=== PATIENT | male | born 1950 | race Caucasian/White ===

== ENCOUNTER 2018-07-20 06:07 | Emergency (ER) | payer MEDICARE ==
[~2018-07-20] VITALS: Ht 177.8 cm; Wt 66.6 kg
[2018-07-20] MEDS ORDERED: OMEP-110 PO (06:16)
--- NOTE | 2018-07-20 06:21 | NUR ---
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
--- NOTE | 2018-07-20 06:52 | NUR ---
X Ray at bedside.
--- NOTE | 2018-07-20 06:56 | NUR ---
Report from Joanne DIAMOND.
[2018-07-20 07:06] VITALS: BP 161/84
--- NOTE | 2018-07-20 07:35 | NUR ---
Provider at bedside.
--- NOTE | 2018-07-20 07:57 | NUR ---
Patient given discharge instructions and they have confirmed that they understand the instructions. Patient ambulatory with steady gait.
== END 2018-07-20 07:59 | disposition home or self-care (01) ==
LOC: ED 07:30
DX: M72.2 Plantar fascial fibromatosis (principal)
CPT/HCPCS: 99283

== ENCOUNTER 2018-10-16 09:42 | Emergency (ER) | payer MEDICARE ==
[~2018-10-16] VITALS: Ht 175.3 cm; Wt 61.1 kg
[~2018-10-16 09:42] MED LIST: OMEP-110 PO
[2018-10-16 09:50] VITALS: BP 136/69
[2018-10-16] MEDS ORDERED: BACITRACIN ZINC OINT 500U/GM, 0.9 GM ONE (10:17)
[2018-10-16] MEDS ORDERED: IBUPROFEN 200 MG TABLET ONE (10:20)
--- NOTE | 2018-10-16 10:23 | NUR ---
PT.'S RIGHT FOREARM AND LEFT KNEE ABRASIONS WERE CLEANESED AND DRESSED BY MARIA INES DALY.
[2018-10-16] MEDS ORDERED: IBUPROFEN 200 MG TABLET PO ONE (10:30)
--- NOTE | 2018-10-16 11:32 | NUR ---
Patient given knee immobilizer/crutches & discharge instructions and they have confirmed that they understand the instructions. Patient ambulatory with steady gait.
== END 2018-10-16 11:42 | disposition home or self-care (01) ==
LOC: ED 11:36
DX: S83.91XA Sprain of unspecified site of right knee, initial encounter (principal); V18.0XXA Pedal cycle driver injured in noncollision transport accident in nontraffic accident, initial encounter; Y93.89 Activity, other specified; Y92.410 Unspecified street and highway as the place of occurrence of the external cause; Y99.8 Other external cause status
CPT/HCPCS: 29505; 99283